=== PATIENT | female | born 1945 | race Caucasian/White ===

== ENCOUNTER 2016-10-13 11:49 | Emergency (ER) | payer MEDICARE, OTHER ==
[~2016-10-13] VITALS: Ht 162.6 cm; Wt 57.1 kg
[2016-10-13] MEDS ORDERED: ACYCLOVIR400 MG PO (12:07)
[2016-10-13] MEDS ORDERED: CITALOPRAM HBR10 MG PO (12:07)
== END 2016-10-13 12:20 | disposition home or self-care (01) ==
LOC: ED 11:49
DX: S69.91XA Unspecified injury of right wrist, hand and finger(s), initial encounter (principal); Z00.8 Encounter for other general examination; V89.2XXA Person injured in unspecified motor-vehicle accident, traffic, initial encounter